=== PATIENT | female | born 1970 | race Caucasian/White ===

== ENCOUNTER 2018-01-04 14:29 | Inpatient (IN) | payer OTHER ==
[~2018-01-04] VITALS: Ht 162.6 cm; Wt 86.2 kg
[2018-01-04] MEDS ORDERED: LORAZEPAM 1 MG TABLET PO PRN ×2 (22:45)
[2018-01-04] MEDS ORDERED: MIRALAX 17 GM POWD.PACK PO PRN (22:45)
[2018-01-04] MEDS ORDERED: ONDANSETRON 4 MG/2 ML VIAL IM PRN (22:45)
[2018-01-04] MEDS ORDERED: diphenhydrAMINE 50 MG CAPSULE PO PRN (22:45)
[2018-01-04] MEDS ORDERED: LOPERAMIDE HCL 2 MG CAPSULE PO PRN ×2 (22:45)
[2018-01-04] MEDS ORDERED: IBUPROFEN 400 MG TABLET PO PRN (22:45)
[2018-01-04] MEDS ORDERED: DICYCLOMINE HCL 20 MG TABLET PO PRN (22:45)
[2018-01-04] MEDS ORDERED: THIAMINE HCL 200 MG/2 ML VIAL IM ONE (22:45)
[2018-01-04] MEDS ORDERED: MAG HYDROX/AL HYDROX/SIMETH 30 ML LIQUID UDC PO PRN (22:45)
[2018-01-04] MEDS ORDERED: LORAZEPAM 2 MG/1 ML VIAL IM PRN (22:45)
[2018-01-04] MEDS ORDERED: NICOTINE POLACRILEX 4 MG GUM-PK OF TEN BC PRN (22:45)
[2018-01-04 23:30] VITALS: BP 177/81
[2018-01-04 23:30] LABS: BASOPHILS # (AUTO) 0.1 K/uL (0.0-8.0); BASOPHILS % (AUTO) 0.9 % (0.0-2.0); EOSINOPHILS # (AUTO) 0.3 K/uL (0.0-0.7); EOSINOPHILS % (AUTO) 3.1 % (0.0-7.0); LYMPHOCYTES # (AUTO) 2.4 K/uL (20.0-40.0); LYMPHOCYTES % (AUTO) 28.7 % (20.5-51.5); MEAN CORPUSCULAR HEMOGLOBIN 29.4 uug (24.7-32.8); MEAN CORPUSCULAR HGB CONC 34 g/dL (32.3-35.6); MEAN CORPUSCULAR VOLUME 86.4 fL (75.5-95.3); MONOCYTES # (AUTO) 0.8 K/uL (2.0-10.0); NEUTROPHILS # (AUTO) 4.8 K/uL (1.8-8.9); NEUTROPHILS % (AUTO) 57.3 % (38.5-71.5); PLATELET COUNT (AUTO) 203 K/uL (179-408); RED BLOOD CELL COUNT(AUTO) 5.44 MIL/uL (3.63-4.92); WHITE BLOOD COUNT (AUTO) 8.4 K/uL (3.8-11.8)
[2018-01-04] MEDS ORDERED: LORAZEPAM 1 MG TABLET PO SCH (23:30)
--- NOTE | 2018-01-04 23:30 | NUR ---
Intake Assessment Assessment done at intake office. Patient is alert & oriented x4. Pt is ambulatory with a steady gait. Speech is clear and audible. Pt presented with flushed skin, anxious/irritable mood, fine tremors, & reports moderate headache. Pt does not look intoxicated. Vitals taken immediately B/P 170/81, MT 69, RR 16, Temp 97.6, O2Sat 98%. She reports that she is here to detox off from Alcohol. Pt has allergies to Celebrex, Percocet, Vicodin. CIWA 15 at this time. Explained to pt unit protocols regarding destruction of any controlled substances brought to facility and handling of all medications. Pt is coherent and is able to sign consent & verbalized understanding. Dr. Farmer aware of pt's admission. Will continue admission process when pt arrives in the unit.
--- NOTE | 2018-01-04 23:45 | NUR ---
ADMISSION NOTE: Patient is a 47 y.o female admitted at [facility] at approximately 2332pm of 01/04/18 for medically supervised withdrawal from ETOH. Body search done and skin check performed, no contraband found. Skin noted to be intact. Pt is 5'4" tall and weighs 190 lbs in a standing scale. Pt is cooperative during assessment. Patient is oriented to floor unit and room. Patient follows a diabetic diet with reported allergies to Vicodin, Percocet, & Celebrex. Pt wishes to be full Code. Patient is alert & oriented x4, ambulatory with a steady gait. Speech is clear and audible. Patient presented with anxious/irritable mood, moderate headache, fine tremors & moist/clammy skin. Pt is cooperative during interview. No shortness of breath noted. Respiration even & unlabored. Abdomen soft & non-distended. Bowel sounds active in all four quadrants. Last bowel noted was today 01/04/18. Pt denies any nausea/vomiting. No chest pain noted. CIWA 15 noted. Patient noted with past medical history of Anxiety, Depression, Diabetes Type II, Hypertension, Hepatitis B, Arthritis, Rotary Cuff Surgery(2013), Hysterectomy(2017). Pt denies any hx of suicide attempt. Pt currently denies SI/HI. Pt was able to provide urine sample for drug screen upon admission and is voiding clear yellow urine with no problems. Substance use: 1. ETOH- Pt has been drinking since 17 years old. Pt reports that she started drinking on a daily basis 3 years ago and drinking got worse in the past 6 months, she reports drinking 10-12 cans of beer daily. Last drink was the night prior to admission 01/03/18. Last consumed 4 cans of beer. 2. Marijuana- Pt started smoking Marijuana when she was 17 years old. Pt reports smoking 5 joints on a daily basis for 3 years. Pt has never been sober before and never been to a formal treatment program in the past. Patient denies being hospitalized in the last 30 days. Patient smokes 10 cigarettes daily. Patient reports receiving a Pneumonia Vaccine last year but cannot remember the date, Pt agrees to receive a flu Vaccine. Patient has a PCP named Dr. Jonh Covarrubias. Urine drug screen came back positive for Cannabinoids. Alcohol level is 0.00%. Fall & Seizure precautions are in place. All needs attended & met. Safety precautions are in place. Bed locked in lowest position. Both side rails padded & up. Call light within pt's reach. Will continue to monitor.
[2018-01-04 23:47] LABS: ETHANOL < 3 MG/DL (0-0)
[2018-01-04 23:49] LABS: ALANINE AMINOTRANSFERASE 59 U/L (14-59); ALKALINE PHOSPHATASE 104 U/L (50-136); AMYLASE 87 U/L (25-115); ASPARTATE AMINOTRANSFERASE 28 U/L (15-37); BILIRUBIN,TOTAL 0.4 mg/dL (0.2-1.0); CARBON DIOXIDE 22 mmol/L (21-32); CHLORIDE 100 mmol/L (98-107); CREATININE 1.1 mg/dL (0.6-1.3); GLUCOSE 130 mg/dL (74-106); MAGNESIUM 1.8 mg/dL (1.8-2.4); POTASSIUM 3.6 mmol/L (3.5-5.1); TOTAL PROTEIN, SERUM 8.4 g/dL (6.4-8.2); UREA NITROGEN, BLOOD 14 mg/dL (7-18)
[2018-01-04 23:49] LABS: *AMPHETAMINE, URINE NEGATIVE (NEGATIVE); *BARBITURATE, URINE NEGATIVE (NEGATIVE); *CANNABINOID, URINE POSITIVE (NEGATIVE); *COCCAINE, URINE NEGATIVE (NEGATIVE); *OPIATE, URINE NEGATIVE (NEGATIVE); *PHENCYCLIDINE SCREEN,URINE NEGATIVE (NEGATIVE)
[2018-01-05 00:03] LABS: *URINE HCG, QUAL NEGATIVE (NEGATIVE)
[2018-01-05] MEDS ORDERED: DIPH25CA83 PO (00:12)
[2018-01-05] MEDS ORDERED: OMEP20TA5 PO (00:12)
[2018-01-05] MEDS ORDERED: TRIA16.96 NS (00:12)
[2018-01-05] MEDS ORDERED: AMLO10TA2 PO (00:12)
[2018-01-05] MEDS ORDERED: LOVA20TA2 PO (00:12)
[2018-01-05] MEDS ORDERED: TRAZ-144 PO (00:12)
[2018-01-05] MEDS ORDERED: VENL75CA62 PO (00:12)
[2018-01-05] MEDS ORDERED: RANI150T8 PO (00:12)
[2018-01-05] MEDS ORDERED: METF-495 PO (00:12)
[2018-01-05] MEDS ORDERED: ATEN25TA PO (00:12)
[2018-01-05] MEDS ORDERED: ENAL20TA PO (00:12)
[2018-01-05] MEDS ORDERED: FEXO-65 PO (00:12)
[2018-01-05] MEDS ORDERED: ALPR0.5T8 PO (00:12)
[2018-01-05] MEDS: ACETAMINOPHEN 325 MG TABLET PO PRN ×3 (01:06→21:15)
[2018-01-05] MEDS: CLONIDINE HCL 0.1 MG TABLET PO PRN ×2 (01:06→17:13)
--- NOTE | 2018-01-05 01:06 | NUR ---
PRN Tylenol & Clonidine Patient complains of moderate headache. Vitals noted B/P 170/81, MD 69, O2Sat 98% RR 16. PRN Clonidine and Tylenol administered as ordered. Will monitor for effectiveness.
--- NOTE | 2018-01-05 02:06 | NUR ---
PRN Reassessment Pt verbalized relief from headache. Vitals rechecked. B/P 119/72, VA 78 noted. Pt in bed and appears comfortable. Will continue to monitor patient.
[2018-01-05 02:36] VITALS: BP 119/72
--- NOTE | 2018-01-05 03:33 | NUR ---
RN NOTE Pt reports that she is allergic to Vicodin, Percocet and Celebrex. Asked pt if she is also allergic to Tylenol or Ibuprofen. Per pt, she has taken Tylenol and Ibuprofen for pain and does not get allergic reaction. Pt reports getting heartburn everytime she takes Ibuprofen so she prefers Tylenol.
--- NOTE | 2018-01-05 07:08 | NUR ---
End of Shift Note: Patient alert & oriented x4 admitted for medically supervised withdrawal from Alcohol. Patient started on a Ativan taper with no adverse reactions noted. Pt tolerated taper well. Pt presented with moist/clammy skin, anxious/irritable mood, moderate headache & fine tremors during my shift. Pt received PRN Clonidine for increased Blood pressures &Tylenol for headache and were effective. Last CIWA 15. Closely monitored vitals signs and noted WNL. Pt slept for a total of 4 hours. Fluid intake: 500ml. Voided 1x with no bowel movement during my shift. Patient was encourage to increase fluid intake as tolerated. All needs attended. Safety measures in place. Will endorse to day shift nurse.
--- NOTE | 2018-01-05 07:50 | NUR ---
Start of shift- 47 y/o female admitted for ETOH and marijuana dependency. Pt on 4 day modified ativan taper. Patient in bed and appears to be sleeping. Resp even and unlabored. Last night Pt received PRN Clonidine for increased Blood pressures &Tylenol for headache and were effective. Last CIWA 15 @0100. Pt slept for a total of 4 hours. Pt is FULL CODE. ALLERGIES PERCOCET, VICODIN, CELEBREX. Patient is encourage to increase fluid intake as tolerated. Safety measures in place. Call light within reach, bed in the lowest position and locked, padded rails up x2. Will continue to monitor.
[2018-01-05 08:00] VITALS: BP 132/81
[2018-01-05] MEDS: LORAZEPAM 1 MG TABLET PO SCH ×3 (08:09→21:14)
[2018-01-05] MEDS: THIAMINE HCL 100 MG TABLET PO SCH (08:09)
[2018-01-05] MEDS: FOLIC ACID 1 MG TABLET PO SCH (08:09)
[2018-01-05] MEDS ORDERED: TUBERCULIN,PURIF.PROT.DERIV. 5 TU/0.1 ML TEST ID ONE (09:00)
[2018-01-05] MEDS: METFORMIN 1000 MG PO SCH ×2 (09:46→17:13)
[2018-01-05] MEDS: MULTIVITAMINS,THERAPEUTIC TABLET PO SCH (09:46)
[2018-01-05] MEDS: ENALAPRIL 20 MG PO SCH (09:47)
[2018-01-05] MEDS: OMEPRAZOLE 20 MG PO SCH (09:47)
[2018-01-05] MEDS: AMLODIPINE 10 MG PO SCH (09:47)
--- NOTE | 2018-01-05 09:50 | NUR ---
Late dose Metformin 500 mg PO, pharmacy had to review pt's medications and deliver to unit.
[2018-01-05 12:00] VITALS: BP 125/73
--- NOTE | 2018-01-05 12:30 | NUR ---
PRN Tylenol 650 mg po for headache #8/10. Ativan 1 mg po for CIWA 10
[2018-01-05] MEDS ORDERED: DEXTROSE 50% 50 ML DISP.SYRIN IV PRN (13:00)
--- NOTE | 2018-01-05 13:30 | NUR ---
Reassess Tylenol, pt states pain decreased to #5-/10 Addendum: 01/05/18 at 1358 by Sindhu Raymundo RN Reassess Ativan 1 mg, CIWA decreased to 8.
[2018-01-05] MEDS: ONDANSETRON ODT 4 MG TAB.RAPDIS SL PRN (13:52)
--- NOTE | 2018-01-05 13:53 | NUR ---
PRN Zofran 4 mg PO fast tabs for nausea.
--- NOTE | 2018-01-05 14:53 | NUR ---
Reasses Aaliyah. Pt reports her nausea improved. She was sleeping with resp even and unlabored.
[2018-01-05 16:00] VITALS: BP 145/89
[2018-01-05] MEDS ORDERED: VENLAFAXINE XR 75 MG CAP.SR.24H PO SCH (16:15)
[2018-01-05] MEDS: BLOOD SUGAR DIAGNOSTIC 1 EACH STRIP VI SCH ×2 (16:38→21:18)
[2018-01-05] MEDS: INSULIN REGULAR, HUMAN 300 UNIT/3 ML VIAL SQ PRN ×2 (16:44→21:19)
[2018-01-05] MEDS: VENLAFAXINE XR 37.5 MG CAP.SR.24H PO SCH (17:12)
--- NOTE | 2018-01-05 17:14 | NUR ---
PRN Catapres 0.1mg PO for BP 145/89
[2018-01-05 18:13] VITALS: BP 125/86
--- NOTE | 2018-01-05 18:14 | NUR ---
Reassess Catapres- BP improved now 125/86, HR 86
--- NOTE | 2018-01-05 18:36 | NUR ---
End of shift- 47 y/o female admitted for ETOH and marijuana dependency. Pt on 4 day modified Ativan taper. Tolerating well. Last CIWA 4 @46069. PMH- DM type II, HTN, anxiety, depression, Hepatitis B. VSS. Blood glucose at 1630 [id number], administered 3 units Regular insulin. Patient participated in group therapy one time and was visible on the unit. Pt received PRN Medications per MD orders with good effects. Adequate PO fluid intake 2400 ml, void X 3, BM x 1. Pt is FULL CODE. ALLERGIES PERCOCET, VICODIN, CELEBREX. No ibuprofen to be given to patient r/t Celebrex allergy. Pt reports ibuprofen gives her heartburn. Prefers Tylenol for pain. Patient was encouraged to increase fluid intake as tolerated. Safety measures in place. Call light within reach, bed in the lowest position and locked, side rails up x2. Will endorse to on coming shift.
--- NOTE | 2018-01-05 19:15 | NUR ---
Start of Shift NOte: Received patient in bed with eyes closed. Patient is asleep but easily arousable. Pt remains alert & oriented x4. Patient appears with an anxious mood, worried facial expression and withdrawn. Pt presented with moderate headache, reports pins and needles on skin, fine tremors, anxiety & agitation noted. Pt denies auditory and visual hallucination. Last QE=243 and received 3 units during the day. Pt also received PRN Clonidine, Ativan, Zofran & Tylenol and were effective per report. Encourage pt to increase fluid intake. Pt educated current plan of care for the night and medication regimen.
[2018-01-05 20:00] VITALS: BP 113/68
[2018-01-05] MEDS: TRAZODONE 50 MG TABLET PO SCH (21:15)
[2018-01-06] VITALS: BP 110/58
[2018-01-06 04:00] VITALS: BP 123/76
--- NOTE | 2018-01-06 07:22 | NUR ---
End of Shift Note: Patient remains alert & oriented x4. Patient is on a Ativan taper with no adverse reactions noted. Pt tolerated taper well. Pt presented with moist/clammy skin, anxious/irritable mood, moderate headache & fine tremors during my shift. Pt received PRN Tylenol for moderate headache &Tylenol and was effective. Last CIWA 13. BS= 183 @ 2100 and received 3 units of regular insulin per sliding scale with no adverse reactions noted. Closely monitored vitals signs and noted WNL. Pt stayed in her room most the night & slept for a total of 9 hours. Fluid intake: 800ml. Voided 1x with no bowel movement during my shift. Patient was encourage to increase fluid intake as tolerated. All needs attended. Safety measures in place. Will endorse to day shift nurse.
--- NOTE | 2018-01-06 07:30 | NUR ---
Start of shift note; Received report from night nurse. Patient is a a 47 year old female admitted on 01/04/18 for ETOH withdrawals. Patient reported history of diabetes mellitus II with accu-check scheduled ACHS. Patient to be monitored closely. Educated patient regarding the importance of compliance to diabetic diet to prevent complications, patient verbalized understanding. Patient appears anxious, complaining of muscle aches, diaphoresis, avoidant to eye contact, depressed, isolated, and worried. Educated patient regarding the importance of compliance to treatment plan and medication regime. Encouraged patient to participate in group activities and therapies and to verbalize feelings. All safety measures secured. Will continue to monitor patient.
[2018-01-06] MEDS: BLOOD SUGAR DIAGNOSTIC 1 EACH STRIP VI SCH ×2 (07:45→12:08)
--- NOTE | 2018-01-06 07:45 | NUR ---
Accu-Check; Blood sugar check done, obtained 105mg/dl, no insulin needed at this time per Sliding scale protocol.
[2018-01-06] MEDS: METFORMIN 1000 MG PO SCH ×2 (07:46→17:05)
[2018-01-06 08:00] VITALS: BP 135/73
[2018-01-06] MEDS: ENALAPRIL 20 MG PO SCH (09:06)
[2018-01-06] MEDS: VENLAFAXINE XR 37.5 MG CAP.SR.24H PO SCH (09:06)
[2018-01-06] MEDS: FOLIC ACID 1 MG TABLET PO SCH (09:06)
[2018-01-06] MEDS: MULTIVITAMINS,THERAPEUTIC TABLET PO SCH (09:06)
[2018-01-06] MEDS: THIAMINE HCL 100 MG TABLET PO SCH (09:06)
[2018-01-06] MEDS: AMLODIPINE 10 MG PO SCH (09:06)
[2018-01-06] MEDS: OMEPRAZOLE 20 MG PO SCH (09:06)
[2018-01-06] MEDS: LORAZEPAM 1 MG TABLET PO SCH ×3 (09:06→21:15)
[2018-01-06 12:00] VITALS: BP 130/85
--- NOTE | 2018-01-06 12:10 | NUR ---
Accu-check; Blood sugar check done, obtained 114mg/dl, no insulin needed at this time.
[2018-01-06] MEDS: ONDANSETRON ODT 4 MG TAB.RAPDIS SL PRN (13:22)
--- NOTE | 2018-01-06 13:22 | NUR ---
PRN medication; Patient reported nausea and vomiting. PRN Zofran 4mg ODT . Will continue to monitor for effectiveness of medication.
--- NOTE | 2018-01-06 13:48 | NUR ---
MD communication; Patient's blood sugar has been stable and did not require any insulin coverage, notified MD. Per MD to discontinue accu-check and insulin sliding scale. Continue with Metformin for DM type II.
[2018-01-06 16:00] VITALS: BP 132/82
--- NOTE | 2018-01-06 18:10 | NUR ---
Re-assessment; Patient denies nausea and vomiting at this time. PRN medication noted to be effective.
--- NOTE | 2018-01-06 18:37 | NUR ---
End of shift note; Patient is AOX4. Patient remained compliant with treatment plan and medication regime. Medications noted to be effective in reducing withdrawal symptoms. MD discontinued Accu-check and insulin sliding scale, per MD to continue with Metformin only for DM type II. Patient had N/V and was given Zofran , noted to be effective. Patient's last CIWA is 8. Patient participated in group therapies and activities. All safety measures secured. Met all needs.
--- NOTE | 2018-01-06 19:30 | NUR ---
START OF SHIFT Pt is a 47 y/o female admitted on 01/04/18 for ETOH withdrawal. Pt is on a 4 day Ativan taper that started on 01/05/18, tolerating well. Per day shift nurse, last CIWA 8 and PRN Zofran administered. Pt had one episode of vomiting during day shift. Upon assessment pt presents with anxiety, restlessness, headache, intermittent nausea, increased BP, difficulty falling asleep, agitation, tremors and sweats. Medications due. Safety measures in place. Call light within reach. Will continue to monitor.
[2018-01-06 20:00] VITALS: BP 149/87
[2018-01-06] MEDS: TRAZODONE 50 MG TABLET PO SCH (21:15)
[2018-01-06] MEDS: ACETAMINOPHEN 325 MG TABLET PO PRN (21:15)
[2018-01-06] MEDS: CLONIDINE HCL 0.1 MG TABLET PO PRN (21:15)
--- NOTE | 2018-01-06 21:15 | NUR ---
PRN CLONIDINE AND TYLENOL ADMINISTRATION Pt complains of headache /10 and BP 149/87 HR 78, orders to give Clonidine. Safety measures in place. Call light within reach. Will continue to monitor.
--- NOTE | 2018-01-06 22:15 | NUR ---
PRN CLONIDINE AND TYLENOL REASSESSMENT Pt reports headache has ceased. BP 130/74 HR 74, medications noted effective. Safety measures in place. Call light within reach. Will continue to monitor.
--- NOTE | 2018-01-07 | NUR ---
COWS/CIWA DEFERRED AND VITALS REFUSED Pt laying in bed with eyes closed, COWS/CIWA deferred, to be assessed when pt is awake per orders. Vitals refused. Respirations even and unlabored. Safety measures in place. Call light within reach. Will continue to monitor. Addendum: 01/07/18 at 0041 by WISAM MENDEZ RN CIWA DEFERRED, NOT COWS
--- NOTE | 2018-01-07 04:00 | NUR ---
CIWA DEFERRED AND VITALS REFUSED Pt laying in bed with eyes closed, CIWA deferred, to be assessed when pt is awake per orders. Vitals refused. Respirations even and unlabored. Safety measures in place. Call light within reach. Will continue to monitor.
--- NOTE | 2018-01-07 07:10 | NUR ---
END OF SHIFT Pt is a 47 y/o female admitted on 01/04/18 for ETOH withdrawal. Pt is on a 4 day Ativan taper that started on 01/05/18, tolerating well. Pt presented with anxiety, restlessness, headache, intermittent nausea, increased BP, difficulty falling asleep, agitation, tremors and sweats. Pt had difficulty falling asleep r/t generalized body/joint aches 07/29, heat packs given. Scheduled medications and PRN Clonidine and Tylenol administered, effective in S/S of withdrawal as verbalized by pt. Last CIWA 15. Pt slept 7 hours. Intake 1272 ml, void x 3, stool x 0. Safety measures in place. Call light within reach. Pts needs have been met. Endorsed to day shift nurse.
--- NOTE | 2018-01-07 07:30 | NUR ---
start of shift note: received pt from material handler 2nd shift nurse, pt is in stable condition, pt with complaints of generalized body pain, pain level 7/10, will communicate with MD regarding new medications, she verbalized pain is due to arthritis. pt's last noted ciwa 15. will continue to monitor pt for any changes and continue to meet pt's needs
[2018-01-07] MEDS: OMEPRAZOLE 20 MG PO SCH (08:11)
[2018-01-07] MEDS: ENALAPRIL 20 MG PO SCH (08:11)
[2018-01-07] MEDS: FOLIC ACID 1 MG TABLET PO SCH (08:11)
[2018-01-07] MEDS: MULTIVITAMINS,THERAPEUTIC TABLET PO SCH (08:11)
[2018-01-07] MEDS: METFORMIN 1000 MG PO SCH ×2 (08:11→18:22)
[2018-01-07] MEDS: AMLODIPINE 10 MG PO SCH (08:11)
[2018-01-07] MEDS: VENLAFAXINE XR 37.5 MG CAP.SR.24H PO SCH (08:11)
[2018-01-07] MEDS: LORAZEPAM 1 MG TABLET PO SCH ×2 (08:11→20:32)
[2018-01-07] MEDS: THIAMINE HCL 100 MG TABLET PO SCH (08:11)
[2018-01-07] MEDS ORDERED: DOCUSATE SODIUM 250 MG CAPSULE PO SCH (09:45)
[2018-01-07] MEDS: NAPROXEN 250 MG TABLET PO PRN ×2 (10:03→22:42)
--- NOTE | 2018-01-07 10:03 | NUR ---
PRN administration: pt requested for medication for pain for generalized arthritis throughout her body pain level 05/28. pt received Naprosyn. will reassess effectiveness of medication
[2018-01-07 10:35] VITALS: BP 127/72
--- NOTE | 2018-01-07 11:00 | NUR ---
PRN re-assessment: naprosyn was effective pt's pain level 0/10
--- NOTE | 2018-01-07 11:11 | NUR ---
Prompted to go to groups today.
[2018-01-07 12:19] VITALS: BP 131/90
--- NOTE | 2018-01-07 14:34 | NUR ---
RD spoke with patient regarding diet and DM management. Reviewed snack list and HS snack choice with patient. RD explained carbohydrate counting, patient showed understanding. Cheese popcorn snack choice was noted. Daily carbohydrate count was reviewed using [employer], RD approved snack choice, SCALE EXPERT was notified to provide snack at patient's request. Addendum: 01/07/18 at [address] Amended: Links added.
[2018-01-07 17:36] VITALS: BP 145/82
[2018-01-07] MEDS ORDERED: INFLUENZA VACCINE 2017-2018 0.5 ML DISP.SYRIN IM ONE (18:00)
--- NOTE | 2018-01-07 18:58 | NUR ---
end of shift note: pt is in stable condition at this time, no s/s of pain or discomfort, pt is [facility] for [facility]TOH withdrawal/dependence. pt verbalized naprosyn was effective, pt without s/s of hyper/hypoglycemia. pt's tb skin test was negative and pt also received flu vaccine and is noted without a/r reactions. pt's last ciwa is 5 will endorse pt to nightman nurse
--- NOTE | 2018-01-07 19:20 | NUR ---
Start of Shift Patient Received. Patient is in activities room participating in group therapy. Patient continues on a modified 4 day Ativan taper. Per endorsement, patient received influenza vaccine to the left arm. PPD reassessed and noted to be negative. Patient was started on routine Colace and received first dose. PRN Naproxen also received for pain with medication noted to be effective. All needs attended to promptly. Will continue to monitor.
[2018-01-07 20:26] VITALS: BP 150/86
[2018-01-07] MEDS: TRAZODONE 50 MG TABLET PO SCH (20:31)
[2018-01-07] MEDS: GABAPENTIN 300 MG CAPSULE PO SCH (20:31)
[2018-01-07] MEDS ORDERED: ENAL20TA PO (20:50)
[2018-01-07] MEDS ORDERED: DIPH50CA37 PO (20:50)
[2018-01-07] MEDS ORDERED: VENL37.55 PO (20:50)
[2018-01-07] MEDS ORDERED: TRAZ-144 PO (20:50)
[2018-01-07] MEDS ORDERED: NAPR250T4 PO (20:50)
[2018-01-07] MEDS ORDERED: AMLO10TA2 PO (20:50)
[2018-01-07] MEDS ORDERED: METF-495 PO (20:50)
[2018-01-07] MEDS ORDERED: GABA-534 PO (20:50)
--- NOTE | 2018-01-07 22:45 | NUR ---
PRN Medication Administration Patient is noted awake and reading in her room. Patient is verbalizing inability of falling asleep and pain 5/10 to the left arm due to influenza injection. PRN Benadryl and Naproxen administered as per order. Will continue to monitor.
--- NOTE | 2018-01-07 23:45 | NUR ---
PRN Medication Reassessment Patient is noted in bed sleeping. Breathing even and non labored. No facial grimacing noted. No Restlessness noted. Patient received PRN Benadryl and Naproxen noted to be effective. Will continue to monitor.
--- NOTE | 2018-01-08 00:03 | NUR ---
Vitals Refused Patient is noted in bed sleeping. Breathing even and non labored. Vitals Refused. Respirations noted to be 16. Will continue to monitor. Addendum: 01/08/18 at 0004 by JUAN CHAMBERLAIN LVN Amended: Links added.
--- NOTE | 2018-01-08 04:10 | NUR ---
Vitals Refused patient is noted in bed sleeping. Breathing even and non labored. Vitals Refused. patient respirations noted to be 16. Will continue to monitor. Addendum: 01/08/18 at 0527 by JUAN CHAMBERLAIN LVN Amended: Links added.
--- NOTE | 2018-01-08 07:22 | NUR ---
End of Shift Patient is in bed sleeping but easily aroused to verbal stimuli. Breathing even and non labored. Patient noted to be compliant with group and social activities. Patient received PRN Benadryl and Naproxen with medications noted to be effective. Last noted CIWA 7. Patient slept a total of 7 hours. All needs attended to promptly. Will continue to monitor.
--- NOTE | 2018-01-08 07:30 | NUR ---
START OF SHIFT RECEIVED PT LAYING IN BED, A/OX4, RESPIRATIONS EVEN AND UNLABORED. PT REPORTS HAVING JOINT PAIN 8/10, ANXIETY, RESTLESSNESS, SENSITIVITY TO LIGHT. ENCOURAGED PT TO ATTEND GROUP AND ACTIVITIES TO [employer]OM[employer]ING SKILLS. SIDE RAILS UPX2, BED IS IN LOWEST POSITION. CALL LIGHT WITHIN REACH. ALL SAFETY MEASURES IN PLACE.
[2018-01-08 08:00] VITALS: BP 107/61
[2018-01-08] MEDS: METFORMIN 1000 MG PO SCH ×2 (08:55→17:51)
[2018-01-08] MEDS: OMEPRAZOLE 20 MG PO SCH (08:55)
[2018-01-08] MEDS: AMLODIPINE 10 MG PO SCH (08:55)
[2018-01-08] MEDS: THIAMINE HCL 100 MG TABLET PO SCH (08:56)
[2018-01-08] MEDS: FOLIC ACID 1 MG TABLET PO SCH (08:56)
[2018-01-08] MEDS: ENALAPRIL 20 MG PO SCH (08:56)
[2018-01-08] MEDS: VENLAFAXINE XR 37.5 MG CAP.SR.24H PO SCH (08:56)
[2018-01-08] MEDS: MULTIVITAMINS,THERAPEUTIC TABLET PO SCH (08:56)
[2018-01-08] MEDS: GABAPENTIN 300 MG CAPSULE PO SCH ×2 (08:56→21:33)
[2018-01-08] MEDS ORDERED: LORAZEPAM 1 MG TABLET PO SCH (09:00)
[2018-01-08] MEDS: ACETAMINOPHEN 325 MG TABLET PO PRN (09:17)
--- NOTE | 2018-01-08 09:17 | NUR ---
PRN PT C/O JOINT PAIN 06/28. TYLENOL 650 MG PO PRN GIVEN. WILL MONITOR FOR EFFECTIVENESS.
--- NOTE | 2018-01-08 10:17 | NUR ---
REASSESSMENT PT REPORTED TYLENOL WAS EFFECTIVE FOR PAIN NOW 4/10. WILL CONTINUE TO MONITOR.
[2018-01-08 12:00] VITALS: BP 107/61
[2018-01-08 16:00] VITALS: BP 144/89
[2018-01-08] MEDS ORDERED: PENICILLIN G BENZATHINE 2.4 MMU/4 ML DISP.SYRIN IM ONE (17:30)
[2018-01-08] MEDS ORDERED: PENICILLIN G BENZATHINE 1.2 MMU/2 ML DISP.SYRIN IM ONE (17:30)
--- NOTE | 2018-01-08 18:59 | NUR ---
END OF SHIFT LAST CIWA 6 @1600. PT APPEARS WITHDRAWN AND RESTLESS. PT STAYED IN ROOM MOST OF THE DAY, KEEPS TO HIMSELF, BUT ATTENDED AFTERNOON GROUP. PT IS TO BE DISCHARGED TOMORROW. ALL SAFETY MEASURES IN PLACE. WILL GIVE PERTINENT INFO TO [employer] STOCK CLERK NURSE.
[2018-01-08 20:00] VITALS: BP 143/89
--- NOTE | 2018-01-08 20:00 | NUR ---
START OF SHIFT NOTE RECEIVED REPORT FROM DAY SHIFT NURSE. PATIENT IS A 47 YEAR OLD FEMALE ADMITTED FOR ETOH WITHDRAWAL. PATIENT COMPLETED 4 DAY ATIVAN TAPER, TOLERATED WELL AND NO ADVERSE REACTION. PATIENT IS MEDICALLY CLEARED TO BE DISCHARGE TOMORROW. PATIENT WAS NOTED POSITIVE RPR, SHE WAS GIVEN IM PENICILLIN. PATIENT AWARE. PATIENT DID NOT REQUIRE PRN MEDICATION. LAST CIWA 6. RECEIVED REPORT FROM DAY SHIFT NURSE. PATIENT ANXIOUS FROM LEAVING TOMORROW AND C/O HEADACHE. POSITIVE ENCOURAGEMENT GIVEN. SAFETY MEASURES IN PLACE. CALL LIGHT IN REACH. WILL CONTINUE TO MONITOR. Addendum: 01/09/18 at 0343 by GHAZAL PATEL LVN ERROR: PATIENT WAS GIVEN TYLENOL DURING THE DAY
[2018-01-08] MEDS: TRAZODONE 50 MG TABLET PO SCH (21:32)
[2018-01-08] MEDS: NAPROXEN 250 MG TABLET PO PRN (21:38)
--- NOTE | 2018-01-08 21:38 | NUR ---
PRN NAPROXEN ADMINISTRATION PATIENT C/O HEADACHE. WILL MONITOR FOR EFFECTIVENESS
--- NOTE | 2018-01-08 22:38 | NUR ---
PRN NAPROXEN RE-ASSESSMENT PATIENT STATES NAPROXEN HELPFUL AND EFFECTIVE. NO PAIN AT THIS TIME.
--- NOTE | 2018-01-09 | NUR ---
CIWA DEFERRED PATIENT SLEEPING. CIWA DEFERRED. VS REFUSED , RESPIRATION EVEN AND UNLABORED. SAFETY MEASURES IN PLACE. CALL LIGHT IN REACH. WILL CONTINUE TO MONITOR.
--- NOTE | 2018-01-09 04:00 | NUR ---
CIWA DEFERRED PATIENT SLEEPING. CIWA DEFERRED. VS REFUSED , RESPIRATION EVEN AND UNLABORED. SAFETY MEASURES IN PLACE. CALL LIGHT IN REACH. WILL CONTINUE TO MONITOR.
[2018-01-09] MEDS: ACETAMINOPHEN 325 MG TABLET PO PRN (06:29)
--- NOTE | 2018-01-09 06:29 | NUR ---
PRN TYLENOL ADMINISTRATION PATIENT C/O BOTH ARMS PAIN 05/28 DUE TO PENICILLIN IM SHE RECEIVED YESTERDAY. WILL MONITOR FOR EFFECTIVENESS
--- NOTE | 2018-01-09 07:21 | NUR ---
END OF SHIFT NOTE PATIENT SLEPT 7 HOURS. FLUID INTAKE 1,776 ML. VOIDED X 2. NO BM. MONITORED PATIENT THROUGHOUT SHIFT. PATIENT COMPLIANT WITH MEDICATION AND TREATMENT PLAN. PATIENT IS DISCHARGING TODAY. PATIENT WAS GIVEN PRN NAPROXEN FOR HEADACHE. AT 628, PATIENT WOKE UP C/O PAIN ON BOTH ARMS DUE TO PENICILLIN IM SHE RECEIVED. PRN TYLENOL GIVEN. SAFETY MEASURES IN PLACE. CALL LIGHT IN REACH. WILL CONTINUE TO MONITOR. LAST CIWA 4.
--- NOTE | 2018-01-09 07:29 | NUR ---
PRN TYLENOL RE-ASSESSMENT PATIENT HELPFUL . PAIN LEVEL 2/10 AT THIS TIME, TOLERABLE. WILL CONTINUE TO MONITOR
--- NOTE | 2018-01-09 07:53 | NUR ---
START OF SHIFT RECEIVED PT RESTING IN BED, A/OX4, RESPIRATIONS EVEN AND UNLABORED. PT IS TO BE DISCHARGED TODAY. PT STATES, "I HAVE SOME JOINT PAIN OTHERWISE I AM FEELING OKAY." ALL SAFETY MEASURES IN PLACE. WILL MONITOR UNTIL DISCHARGE.
[2018-01-09 08:00] VITALS: BP 148/88
[2018-01-09] MEDS: METFORMIN 1000 MG PO SCH (08:16)
[2018-01-09] MEDS: THIAMINE HCL 100 MG TABLET PO SCH (08:16)
[2018-01-09] MEDS: MULTIVITAMINS,THERAPEUTIC TABLET PO SCH (08:16)
[2018-01-09] MEDS: NAPROXEN 250 MG TABLET PO PRN (08:16)
[2018-01-09] MEDS: GABAPENTIN 300 MG CAPSULE PO SCH (08:16)
[2018-01-09] MEDS: VENLAFAXINE XR 37.5 MG CAP.SR.24H PO SCH (08:16)
[2018-01-09] MEDS: FOLIC ACID 1 MG TABLET PO SCH (08:16)
[2018-01-09] MEDS: AMLODIPINE 10 MG PO SCH (08:16)
[2018-01-09] MEDS: OMEPRAZOLE 20 MG PO SCH (08:17)
[2018-01-09] MEDS: ENALAPRIL 20 MG PO SCH (08:17)
--- NOTE | 2018-01-09 09:27 | NUR ---
DISCHARGE NOTE PT IS A/OX4, RESPIRATIONS EVEN AND UNLABORED, IN STABLE CONDITION, VVS. PT D/C INSTRUCTIONS GIVEN AND PT VERBALIZED UNDERSTANDING. PT LEFT THE BUILDING AT 0927 ON 01/09/18 WITH ALL BELONGINGS, HOME MEDS, PRESCRIPTIONS. PT HAS BEEN PICKED UP BY "[employer]" UI DEVELOPER AND TAKEN TO [facility].
== END 2018-01-09 09:27 | disposition home or self-care (01) | DRG 895 ==
LOC: SRC 21:54
PROVIDERS: ADMIT Internal Medicine; ATTEND Internal Medicine
PROC: HZ2ZZZZ Detoxification Services for Substance Abuse Treatment (ICD-10-PCS; principal; 2018-01-04)
PROC: HZ41ZZZ Group Counseling for Substance Abuse Treatment, Behavioral (ICD-10-PCS; 2018-01-05)
PROC: HZ31ZZZ Individual Counseling for Substance Abuse Treatment, Behavioral (ICD-10-PCS; 2018-01-07)
DX: F10.230 Alcohol dependence with withdrawal, uncomplicated (principal); A53.0 Latent syphilis, unspecified as early or late; F33.1 Major depressive disorder, recurrent, moderate; F12.20 Cannabis dependence, uncomplicated; E11.9 Type 2 diabetes mellitus without complications; F13.10 Sedative, hypnotic or anxiolytic abuse, uncomplicated; Y90.9 Presence of alcohol in blood, level not specified; F17.210 Nicotine dependence, cigarettes, uncomplicated; M19.90 Unspecified osteoarthritis, unspecified site; F41.9 Anxiety disorder, unspecified; I10 Essential (primary) hypertension; K21.9 Gastro-esophageal reflux disease without esophagitis; Z90.710 Acquired absence of both cervix and uterus; Z83.3 Family history of diabetes mellitus; Z82.49 Family history of ischemic heart disease and other diseases of the circulatory system; Z81.1 Family history of alcohol abuse and dependence; F43.29 Adjustment disorder with other symptoms
CPT/HCPCS: 36415; 70030-TC; 80307; 80349; 83735; 84703; 85025; 86580; 86592; 86705; 86780; 86803; 87340; 87806; 90686; G0480; J0561; J1815; J3411; Q0162; Q0163